=== PATIENT | female | born 1995 | race Caucasian/White ===

== ENCOUNTER 2020-10-14 06:26 | Day surgery (SDC) | payer BC ==
[~2020-10-14] VITALS: Ht 160 cm; Wt 68.0 kg
[~2020-10-14 06:26] MED LIST: PROTONIX40 MG PO
[2020-10-14 07:11] LABS: HEMATOCRIT 43.2 % (36.0-48.0); HEMOGLOBIN 14.4 g/dL (12-16); MCH 32.6 pg (26.0-34.0); MCHC 33.3 g/dL (31.0-37.0); MCV 97.7 fL (80.0-100.0); MEAN PLATELET VOLUME 9.5 fL (7.4-10.4); RBC 4.42 10x6/uL (4.00-5.40); RDW 12.1 % (11.5-14.5); WBC 6.5 10x3/uL (4.8-10.8)
[2020-10-14 07:35] LABS: HCG SERUM NEGATIVE (NEGATIVE)
[2020-10-14 08:32] VITALS: BP 117/76; Ht 160 cm; Wt 68.0 kg
--- NOTE | 2020-10-14 11:16 | NUR ---
[address] OPAL EARLY.
== END 2020-10-14 11:45 | disposition home or self-care (01) ==
LOC: D.OPS 06:26
PROVIDERS: Anesthesiology; ATTEND Obstetrics & Gynecology Maternal & Fetal Medicine
DX: R10.2 Pelvic and perineal pain (principal); N80.9 Endometriosis, unspecified